=== PATIENT | female | born 1935 ===

== ENCOUNTER 2022-05-07 02:50 | Emergency (ER) | payer OTHER, SELFPAY ==
--- NOTE | ~2022-05-07 | CT_ITS ---
Clinical Indication: Pulmonary embolus CT Scan of the Chest with Contrast: Technique: Contiguous sections were acquired throughout the chest after intravenous administration of 100 cc of Omnipaque 350. Dose reduction technique was used on this scan by utilizing automated expos ure control and iterative reconstruction technique. The dose-length product (DLP) was 299.98 mGy-cm. Findings: There is no evidence of any significant mediastinal, hilar or axillary lymphadenopathy. There is no f illing defect in the pulmonary arterial tree to suggest pulmonary embolus. There is no evidence of ao rtic dissection or aneurysm. There are atherosclerotic calcifications of the aorta. There is no evidence of pleural or pericardial effusion. There is a 9 mm irregular nodular opacity at the right lung base (axial image 76). No other significa nt pulmonary abnormality identified, though there is mild respiratory motion artifact. Images through the upper abdomen reveal no abnormalities. Impression: No evidence of pulmonary embolus, aortic dissection, or aortic aneurysm. 9 mm irregular nodular opacity right lung base. This probably represents focal nodular scarring or at electasis, but is indeterminate. As per Fleischner Society criteria, 3 month follow-up CT scan is adv ised. Reviewed, dictated and finalized at location . MARKETER Impression: No evidence of pulmonary embolus, aortic dissection, or aortic aneurysm. 9 mm irregular nodular opacity right lung base. This probably represents focal nodular scarring or atelectasis, but is indeterminate. As per Fleischner Societ y criteria, 3 month follow-up CT scan is advised.
--- NOTE | ~2022-05-07 | XR_ITS ---
Portable chest x-ray Comparison: None Clinical History: Dyspnea Findings: Lungs are clear, without focal consolidation or pleural effusion. Cardiomediastinal silho uette is unremarkable. Bones and soft tissues are unremarkable. Impression: Normal chest. Reviewed, dictated and finalized at location . 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
[2022-05-07 02:56] VITALS: BP 139/67; PULSE 96; RESP 22; TEMP 36.7; O2SAT 99
--- NOTE | 2022-05-07 03:55 | ECG_ITS ---
Measurements Intervals Dolph Rate: 91 P: 63 LA: 141 QRS: 13 QRSD: 98 T: 120 QT: 205 QTc: 253 Interpretive Statements SINUS RHYTHM WITH SINUS ARRHYTHMIA MINIMAL Q WAVES- INFERIOR LEADS BORDERLINE T WAVE ABNORMALITY- ANTERIOR LEADS BASELINE ARTIFACT- I, III, AVR, AVL, AVF BORDERLINE ECG NO PREVIOUS ECG AVAILABLE FOR COMPARISON Electronically Signed On 05-07-2022 6:33:40 [employer] by Nghia Venegas D.O.
[2022-05-07 04:24] VITALS: O2SAT 100
--- NOTE | 2022-05-07 04:38 | PCRCNOTE ---
at 0405- patient refused ABG at this time. RN and physician notified.
--- NOTE | 2022-05-07 04:46 | ED.GENADULT ---
HPI - General Adult General Chief complaint: Shortness of Breath/Dyspnea Stated complaint: sob x 3 days Time Seen by Provider: 05/07/22 03:51 History of Present Illness HPI narrative: Patient is a 86-year-old female who presents the emergency department with chief complaint of shortness of breath. Patient is currently undergoing rehab after a lower extremity fracture at a local rehab facility. Patient's got more short of breath and was given some p.o. Lasix and then ultimately they decided to send the patient to the emergency department. Patient states currently she feels fine and does not think that she needs to be in the emergency department tonight Related Data Allergies Allergy/AdvReac Type Severity Reaction Status Date / Time banana Allergy Hives Verified 05/02/22 14:54 MSG Allergy Hives Uncoded 05/02/22 14:54 oatmeal Allergy Hives Uncoded 05/02/22 14:54 Review of Systems Review of Systems: A 10 system review of systems was completed on the patient and is negative except for what is stated in the HPI. Nursing and ancillary documentation was reviewed. [facility] Social History Social History Smoking status: Never smoker Alcohol intake: never Substance use: never Substance use type: does not use Spiritual care concerns: No Exam Narrative: GENERAL: Well-appearing, well-nourished, and in no acute distress. HEAD: Normocephalic, atraumatic. EYES: PERRLA and EOMI. ENT: Nares clear, no rhinorrhea or epistaxis. Mucous membranes moist. NECK: Supple. CHEST: Clear to auscultation. No respiratory distress. HEART: Regular rate and rhythm. No murmur heard. Normal peripheral pulses. ABDOMEN: Soft, nontender, nondistended, normal active bowel sounds. EXTREMITIES: Normal range of motion. No edema. SKIN: Warm, dry, no rash. NEURO: No focal deficits. Alert and oriented x3. PSYCH: Normal mood and affect. Course Vital Signs Vital signs: Vital Signs Temperature 36.7 C 05/07/22 02:56 Pulse Rate 96 05/07/22 02:56 Respiratory Rate 22 H 05/07/22 02:56 Blood Pressure 139/67 05/07/22 02:56 Pulse Oximetry 99 05/07/22 02:56 Oxygen Delivery Room Air 05/07/22 02:56 Temperature 36.7 C 05/07/22 02:56 Pulse Rate 96 05/07/22 02:56 Respiratory Rate 22 H 05/07/22 02:56 Blood Pressure 139/67 05/07/22 02:56 Pulse Oximetry 100 05/07/22 04:24 Oxygen Delivery Room Air 05/07/22 04:24 Medical Decision Making Vital Signs Vital Signs: Vital Signs Temperature 36.7 C 05/07/22 02:56 Pulse Rate 96 05/07/22 02:56 Respiratory Rate 22 H 05/07/22 02:56 Blood Pressure 139/67 05/07/22 02:56 Pulse Oximetry 99 05/07/22 02:56 Oxygen Delivery Room Air 05/07/22 02:56 Temperature 36.7 C 05/07/22 02:56 Pulse Rate 96 05/07/22 02:56 Respiratory Rate 22 H 05/07/22 02:56 Blood Pressure 139/67 05/07/22 02:56 Pulse Oximetry 100 05/07/22 04:24 Oxygen Delivery Room Air 05/07/22 04:24 Lab Data 05/07/22 04:49 05/07/22 04:49 Labs: Lab Results 05/07/22 05/07/22 05/07/22 Range/Units 04:49 04:49 04:49 WBC 11.8 H (4.5-10.0) K/mm3 RBC 3.52 L (4.2-5.4) M/mm3 Hgb 10.6 L (12.0-15.0) g/dL Hct 33.4 L (37.0-47.0) % MCV 94.9 (80-100) fl MCH 30.1 (26-34) pg MCHC 31.7 L (32-36) g/dl RDW 14.6 H (11.5-14.5) % Plt Count 553 H (150-375) k/mm3 MPV 9.3 (7.4-10.4) fl Immature Gran % (Auto) 0.4 (0-0.5) % Neut % (Auto) 69.9 (45.5-73.1) % Lymph % (Auto) 20.5 (18.3-44.2) % [place] % (Auto) 6.0 (2.6-8.5) % Eos % (Auto) 2.9 (0-4.4) % Baso % (Auto) 0.3 (0.2-1.2) % Lymph # (Auto) 2.41 (0.9-3.2) K/mm3 [place] # (Auto) 0.7 H (0.1-0.6) K/mm3 Eos # (Auto) 0.3 (0-0.3) K/mm3 Baso # (Auto) 0.0 (0.0-0.1) K/mm3 Abs Immat Gran (auto) 0.05 H (0.00-0.031) K/mm3 Absolute Neuts (auto) 8.2 H (1.3-6.7) K/
[2022-05-07 05:02] LABS: Basophils Percent Auto 0.3 % (0.2-1.2); Eosinophils Absolute Auto 0.3 K/mm3 (0-0.3); Eosinophils Percent Auto 2.9 % (0-4.4); Hematocrit 33.4 % (37.0-47.0); Hemoglobin 10.6 g/dL (12.0-15.0); Immature Granulocyte Absolute 0.05 K/mm3 (0.00-0.031); Immature Granulocyte Percent A 0.4 % (0-0.5); Lymphocytes Absolute Auto 2.41 K/mm3 (0.9-3.2); Lymphocytes Percent Auto 20.5 % (18.3-44.2); Mean Corpuscular HGB Conc 31.7 g/dl (32-36); Mean Corpuscular Hemoglobin 30.1 pg (26-34); Mean Corpuscular Volume 94.9 fl (80-100); Mean Platelet Volume 9.3 fl (7.4-10.4); Monocytes Absolute Auto 0.7 K/mm3 (0.1-0.6); Neutrophils Absolute Auto 8.2 K/mm3 (1.3-6.7); Neutrophils Percent Auto 69.9 % (45.5-73.1); Platelet Count Result 553 k/mm3 (150-375); Red Blood Count 3.52 M/mm3 (4.2-5.4); Red Cell Distribution Width 14.6 % (11.5-14.5); White Blood Count 11.8 K/mm3 (4.5-10.0)
[2022-05-07 05:14] LABS: Lactic Acid Reflex 1.2 mmol/L (0.7-2.0)
[2022-05-07 05:17] LABS: Alanine Aminotransferase 36 U/L (6-35); Albumin Level 4.2 g/dL (3.5-5.1); Alkaline Phosphatase 174 U/L (38-126); Anion Gap 7 mmol/L (8-16); Aspartate Amino Transferase 26 U/L (14-36); Bilirubin,Total 0.7 mg/dL (0.2-1.3); Blood Urea Nitrogen 21 mg/dL (7-17); Calcium 9.2 mg/dL (8.4-10.2); Carbon Dioxide 27 mmol/L (22-30); Chloride 102 mmol/L (98-107); Estimated CRCL calculation 39 ml/min; Estimated Glomerular Filt Rate > 60; Ethanol < 10 mg/dL (<10); Glucose 118 mg/dL (65-110); Magnesium 2.2 mg/dL (1.6-2.3); Potassium 4.1 mmol/L (3.4-5.0); Sodium 136 mmol/L (137-145)
[2022-05-07 05:22] LABS: INR 1.1; Prothrombin Time 13.8 Seconds (11.1-14.7)
[2022-05-07 05:24] LABS: Partial Thromboplastin Time 41.4 SECONDS (22.3-36.8)
[2022-05-07 05:27] LABS: NT Pro B Type Natriuretic Pept 100 pg/mL (19.9-100); Troponin I < 0.012 ng/mL (0.000-0.034)
[2022-05-07 05:34] LABS: Procalcitonin 0.1 ng/mL
[2022-05-07 05:39] LABS: Influenza A QL RT-PCR Negative (Negative); Influenza B QL RT-PCR Negative (Negative); RSV RNA, RT-PCR Negative (Negative); SARS-CoV-2 RNA PCR Negative
[2022-05-07 10:18] VITALS: BP 193/88; PULSE 70; RESP 12; O2SAT 98
[2022-05-07] MEDS: amLODIPine BESYLATE 5 MG TABLET 10 MG PO (10:24)
[2022-05-07] MEDS: hydrALAZINE 12.5 MG TABLET PO (10:25)
== END 2022-05-07 10:42 ==
PROVIDERS: Emergency Provider Emergency Medicine; PCP Family Medicine
DX: R06.00 Dyspnea, unspecified (principal); Z20.822 Contact with and (suspected) exposure to COVID-19; I10 Essential (primary) hypertension; Z79.899 Other long term (current) drug therapy
CPT/HCPCS: 36415; 36600; 71045; 71275; 80053; 80307; 83605; 83735; 83880; 84145; 84484; 85025; 85610; 85730; 87637; 93005; 99284; A9270; Q9967